=== PATIENT | female | born 1970 | race Caucasian/White ===

== ENCOUNTER 2016-06-21 09:39 | Outpatient (CLI) | payer BC | END 2016-06-21 09:40 | disposition home or self-care (01) | LOC: NAVSJIPCSP 09:39 | PROVIDERS: ATTEND Internal Medicine | DX: Z23 Encounter for immunization (principal); E78.5 Hyperlipidemia, unspecified | CPT/HCPCS: 36415; 80061 ==

== ENCOUNTER 2016-09-13 09:45 | Outpatient (CLI) | payer BC | END 2016-09-13 09:46 | disposition home or self-care (01) | LOC: NAVSJIPCSP 09:45 | PROVIDERS: ATTEND Internal Medicine | DX: E78.5 Hyperlipidemia, unspecified (principal) | CPT/HCPCS: 36415; 80061 ==

== ENCOUNTER 2016-12-06 08:32 | Outpatient (CLI) | payer BC ==
[2016-12-06 12:13] LABS: Cardiac Risk 4.1 (Less than 4.5)
== END 2016-12-06 08:33 | disposition home or self-care (01) ==
LOC: NAVSJIPCSP 08:32
PROVIDERS: ATTEND Internal Medicine
DX: E78.5 Hyperlipidemia, unspecified (principal)
CPT/HCPCS: 36415; 80061